=== PATIENT | female | born 1985 | race Caucasian/White ===

== ENCOUNTER → 2017-11-22 | Outpatient (CLI) | payer BC ==
[~2017-11-22] MED LIST: FERR140T3 PO; HYDR-4309 PO; IBUP800T37 PO; PREN-127 PO
[2017-11-22 16:57] LABS: PLATELET COUNT, AUTOMATED 372 K/uL (150-450)
== END ==
LOC: MERGE 15:49 → LAB 15:49
PROVIDERS: ATTEND Student in an Organized Health Care Education/Training Program
DX: Z34.91 Encounter for supervision of normal pregnancy, unspecified, first trimester (principal)
CPT/HCPCS: 36415; 85025; 86592; 86703; 86762; 86787; 86850; 86900; 86901; 87340; 87491; 87591

== ENCOUNTER → 2018-01-01 | Outpatient (CLI) | payer BC ==
[~2018-01-01] MED LIST changes: -HYDR-4309 PO; +HYDR-653 PO
--- NOTE | 2018-01-01 20:56 | RADIOLOGY IMAGING REPORT ---
FACILITY: [facility] [place] PATIENT NAME: Rin Teran : 1985 MR: [id number] V: [id number] EXAM DATE: ORDERING PHYSICIAN: SHEREE SALAZAR TECHNOLOGIST: Location: [facility] [place] Patient: Rin Teran : 1985 Visit/Account:[id number] Date of Sevice: 01/01/2018 EXAMINATION: Transabdominal OB Ultrasound >14 wks with Anatomic Survey 01/01/2018 12:04 PM History: ENCNTR FOR SUPRVSN OF NORMAL , UNSP, UNSP TRIMESTER COMPARISON: None FINDINGS: Intrauterine gestations: one presentation: Variable, primarily head down heart rate: 142 bpm Amniotic fluid index: 14.0 cm Largest amniotic fluid pocket 6.1 cm Placenta: Anterior without previa. Placental cord insertion is normal. Uterus: gravid, otherwise normal Maternal adnexa: 5.3 cm anechoic cystic structure in the right adnexa Cervix: Grossly closed Gestational Parameters: BPD: 4.6 cm 20 weeks 0 days HC: 16.7 cm 19 weeks 3 days AC: 14.5 cm 19 weeks 6 days FL: 3.1 cm 19 weeks 4 days Average ultrasound age (AUA): 19 weeks 5 days Estimated gestational age by LMP: 19 weeks 2 days Estimated weight (EFW): 304 grams +/- 44 grams EFW for LMP percentile: 67 Anatomic Survey: Intracranial structures, nose and lips, 4-chamber heart and outflow tracts, stomach, kidneys, urinary bladder, spine, 3-vessel cord and cord insertion are unremarkable. Two upper and two lower extremiti es visualized. The outflow views particularly the right are not optimal but probably grossly normal. IMPRESSION: 1. Single live intrauterine gestation; estimated ultrasound age 19 weeks 5 days (cyst DOMINIK 05/23/2018) which is within range of error with expected clinical dates. 2. Unremarkable anatomic survey. See above discussion regarding the cardiac outflow tract views . There is a greater than 5 cm simple appearing right adnexal cyst which may be a prominent corpus freddy teum cyst. This could be followed later in gestation and repeat cardiac outflow tract views could be obtained at that time. Report Dictated By: Kei Zavala MD at 01/01/2018 8:40 PM Report E-Signed By: Kei Zavala MD at 01/01/2018 8:52 PM [id number]
== END ==
LOC: US 03:09
PROVIDERS: ATTEND Student in an Organized Health Care Education/Training Program
DX: Z02.9 Encounter for administrative examinations, unspecified (principal)
CPT/HCPCS: 76805

== ENCOUNTER → 2018-02-19 | Outpatient (CLI) | payer BC ==
[2018-02-19 17:00] LABS: PLATELET COUNT, AUTOMATED 400 K/uL (150-450)
== END ==
LOC: LAB 15:38
PROVIDERS: ATTEND Student in an Organized Health Care Education/Training Program
DX: Z34.82 Encounter for supervision of other normal pregnancy, second trimester (principal)
CPT/HCPCS: 36415; 82950; 85025

== ENCOUNTER → 2018-03-12 | Outpatient (CLI) | payer BC | LOC: LAB 08:18 | PROVIDERS: ATTEND Student in an Organized Health Care Education/Training Program | DX: O99.810 Abnormal glucose complicating pregnancy (principal) | CPT/HCPCS: 36415; 82951; 82952 ==

== ENCOUNTER → 2018-04-30 | Outpatient (CLI) | payer BC | LOC: LAB 08:13 | PROVIDERS: ATTEND Student in an Organized Health Care Education/Training Program | DX: Z34.93 Encounter for supervision of normal pregnancy, unspecified, third trimester (principal) | CPT/HCPCS: 87081 ==

== ENCOUNTER 2018-05-20 01:28 | Outpatient (CLI) | payer BC ==
[~2018-05-20] VITALS: Ht 165.1 cm; Wt 117.9 kg
[2018-05-20] MEDS ORDERED: LR(*) 1000 ML BAG 1,000 ML IV SCH (03:29)
[2018-05-20] MEDS ORDERED: TERBUTALINE SULF 1 MG/ML VIAL SUBQ PRN (03:30)
[2018-05-20 04:52] VITALS: BP 127/70; Ht 165.1 cm; Wt 117.9 kg
== END 2018-05-20 06:00 | disposition home or self-care (01) ==
LOC: L&D 01:28 → OB 01:28 → UNDOADMIN 01:28 → OB 01:28 → UNDODISIN 06:00 → L&D 06:00 → EDSTATUS 05-21 07:30
PROVIDERS: ATTEND Obstetrics & Gynecology
DX: O26.893 Other specified pregnancy related conditions, third trimester (principal); Z3A.39 39 weeks gestation of pregnancy
CPT/HCPCS: 59025; 99213; J3105; J7120

== ENCOUNTER 2018-05-25 04:58 | Inpatient (IN) | payer BC ==
[~2018-05-25] VITALS: Ht 165.1 cm; Wt 116.6 kg
[2018-05-25] VITALS (17 sets, daily range): BP systolic 103–147; BP diastolic 65–94; Ht 165.1 cm; Wt 116.6 kg
[2018-05-25] MEDS ORDERED: ceFAZolin(*) 2GM/D5W 50ML 50 ML IVPB ONE (05:02)
[2018-05-25] MEDS ORDERED: FAMOTIDINE 20 MG/50 ML PREMIX IVPB ONE (05:05)
[2018-05-25] MEDS ORDERED: METOCLOPRAMIDE 10 MG/2 ML SDV IVP ONE (05:05)
[2018-05-25] MEDS: LR(*) 1000 ML BAG 1,000 ML IV SCH ×2 (05:47→07:04)
[2018-05-25 06:30] LABS: PLATELET COUNT, AUTOMATED 298 K/uL (150-450)
[2018-05-25] MEDS ORDERED: OXYTOCIN 10 UNIT/ML SDV ONE (06:55)
[2018-05-25] MEDS ORDERED: ONDANSETRON 4 MG/2 ML VIAL ONE (06:55)
[2018-05-25] MEDS ORDERED: fentaNYL CITR 100 MCG/2 ML AMP ONE (06:55)
[2018-05-25] MEDS ORDERED: MORPHINE PF 5 MG/10 ML AMP ONE (06:55)
--- NOTE | 2018-05-25 07:21 | History & Physical ---
History of Present Illness Age of Patient: 32 : 2 Para or TPAL: 0 EDC per LMP: May 26, 2018 Estimated Gestational Age: 39.6 Chief Complaint Breech Presentation History of Present Illness Pt is a 32 y/o @ 39-6/7 wga by LMP c/w a 17 week sonogram. Pt presents to L&D for a scheduled 1LTCS for Breech presentation. Pt was offerred external cephalic version and declined. Pt this morning denies any complaints or concerns. Pt reports no loss of amniotic fluid. Good movement. No vaginal bleeding. History Patient's Blood Type: B Positive Rubella Status: Immune Group B Strep Screen: Negative Obstetrical History: History of Ectopic, Laparoscopic salpingectomy Past Medical History: Non contributory Allergies: Coded Allergies: Sulfa (Sulfonamide Antibiotics) (Verified Allergy, Severe, ANAPHYLAXIS, 01/23/17) latex (Verified Allergy, Mild, LIGHT ITCHING, 01/23/17) gluten (Unverified Allergy, Unknown, 11/24/17) Social History: Denies use of ETOH, Tobacco, or recreational drugs. Family History: Blood clots MATERNAL GRANDPARENT FH: bipolar disorder FATHER FH: diabetes mellitus PATERNAL GRANDPARENT FH: heart disease PATERNAL GRANDPARENT FH: hypertension PATERNAL GRANDPARENT Med Rec Home Meds Reported Medications Vits W-Ca,Fe,Fa(<1MG) ( VITAMINS) 1 Each Tablet, 1 EACH PO DAILY, TAB 01/23/17 Discontinued Reported Medications Ferrous Sulfate (FERROUS SULFATE) 140 Mg Tablet.er, PO QDAY 01/23/17 Review of Systems All Systems Reviewed/Normal: Yes, Except as Noted Constitutional: No Fever, No Weight Loss, No Weight Gain, No Chills, No Night Sweats, No Other Neurological: No Syncope, No Confusion, No Weakness, No Dizziness, No Slurred Speech, No Other Eyes: No Vision Change, No Loss of Vision, No Photophobia, No Other ENT: No Hearing Loss, No Sinus Congestion, No Sore Throat, No Ear Ache, No Tinnitus, No Other Cardiovascular: No Chest Pain, No Palpitations, No Orthostatic Hypotension, No Other Respiratory: No Shortness of Breath, No Cough, No Wheezing, No Other Gastrointestinal: No Nausea, No Vomiting, No Diarrhea, No Dysphagia, No Constipation, No Early Satiety, No Hematemesis, No Hematochezia, No Melena, No Abdominal Pain, No Other Genitourinary: No Dysuria, No Hematuria, No Urinary Incontinence, No Other Musculoskeletal: No Pain, No Sprain, No Strain, No Impaired Mobility, No Other Psychiatric: No Depression, No Anxiety, No Other Exam General Exam Vital Signs Vital Signs Date Time Temp Pulse Resp B/P (MAP) Pulse Ox O2 Delivery O2 Flow Rate FiO2 05/25/18 06:42 98.2 74 16 147/93 (111) 96 Room Air General Apperance: Alert/Awake/No Acute Distress Neuro: No Gross deficits Eyes: Normal Extraocular Movement & Vison ENT: Normal Cardiovascular: Regular Rate and Rhythm Abdomen: Soft, Non-Tender, Non-Distended, Gravid - Non-Tender Musculoskeletal: No Weakness/Pain Psychological: Alert & Oriented X3, Appropriate Mood & Affect Presentation: Chris Breech Fetus Heart Tones: 130 Heart Tone Variabilty: Moderate FHT Accelerations: 15X15 FHT Decelerations: None FHT Category: I Medical Decision Making Data Points Result Diagram: 05/25/18 0613 Pre-Admit Course Medical Record Review: Yes VTE Prophylasis: Adult Deep Vein Thrombosis/Pulmonary: No Assessment and Plan ORACLE DATABASE CONSULTANT Assessment: Stable Problems: (1) Breech presentation Status: Acute Assessment & Plan: Pt declined External Cephalic Version and desires to proceed with scheduled LTCS. Pt was counseled on RBA. Desires to proceed. Consents signed. (2) 39 weeks gestation of Problem Qualifiers (1) Breech presentation: Fetus number: single or unspecified fetus Qualified Codes: O32.1XX0 - Maternal care for breech presentation, not applicable or unspecified SHEREE SALAZAR DO May 25, 2018 07:21
[2018-05-25] MEDS ORDERED: ePHEDrine 25 MG/5 ML DISP.SYR IVP ONE (07:36)
[2018-05-25] MEDS ORDERED: METHYLERGONOVINE MAL 0.2MG/ML ONE (07:50)
[2018-05-25] MEDS ORDERED: KETOROLAC 30 MG/ML VIAL ONE (08:17)
[2018-05-25] MEDS ORDERED: NALBUPHINE HCL 10 MG/ML AMP IVP PRN (09:05)
--- NOTE | 2018-05-25 09:05 | Post Operative Note ---
Operative Note - PANTOGRAPH SETTER Operative Day Date: May 25, 2018 Time: 08:51 Physicians Surgeon: Sheree Nunez Yarn Salvager: Brittany Kevin CNM Anesthesia: Spinal Diagnosis Pre-Op Diagnosis: 32 y/o G2P@ 39-6/7 wga Breech presentation, Declines ECV Post-Op Diagnosis: Same Delivered Uterine Malformation Procedure Findings: Uterus appears malformed. Left cornua is asymettric to right. Left fallopian tube surgically absent. Right fallopian tube normal. Left Ovary significantly lower then right ovary on uterus. BabY: Live born female infant at 0753 with apgars of 9/9 weight 3798 gm 8#6 oz. Procedure(s): 1LTCS Specimen Removed:(Maybe N/A): 0 Complications: 0 known Fluids Fluids: 1 liter LR u/o 50cc Estimated Blood Loss: 800 Dictated Date OP Note Dictated: May 25, 2018 Time OP Note Dictated: 09:05 SHEREE NUNEZ DO May 25, 2018 09:05
[2018-05-25] MEDS ORDERED: OXYTOCIN 30 UNIT/D5LR 500 ML 500 ML IV PRN (09:06)
--- NOTE | 2018-05-25 09:08 | Anesthesia OB Pre-Anes Eval ---
History of Present Illness Anesthesia Start Date: May 25, 2018 Anesthesia Start Time: 07:20 OB Anesthesia Diagnosis: primary c/section Current Complication: obesity EDC: May 26, 2018 : 2 Para: 0 Vital Signs: Vital Signs Date Time Temp Pulse Resp B/P (MAP) Pulse Ox O2 Delivery O2 Flow Rate FiO2 05/25/18 06:42 98.2 74 16 147/93 (111) 96 Room Air Result Diagram: 05/25/18 0613 Height (Inches): 65.00 Weight (Pounds): 257 Past Medical History Medical History: obesity, asthma, other (insulin resistance) Surgical History: noncontributory Previous Anesthesia: general Attended Childbirth Classes?: No Hx Anesthesia Reactions: No Hx Family Anesthesia Reaction: No Home Meds Reported Medications Vits W-Ca,Fe,Fa(<1MG) ( VITAMINS) 1 Each Tablet, 1 EACH PO DAILY, TAB 01/23/17 Discontinued Reported Medications Ferrous Sulfate (FERROUS SULFATE) 140 Mg Tablet.er, PO QDAY 01/23/17 Allergies: Coded Allergies: Sulfa (Sulfonamide Antibiotics) (Verified Allergy, Severe, ANAPHYLAXIS, 01/23/17) latex (Verified Allergy, Mild, LIGHT ITCHING, 01/23/17) gluten (Unverified Allergy, Unknown, 11/24/17) Anesthesia OB ROS Neurological: No migraines/headaches, No seizures, No neuropathy, No other ENT: Denies Tooth caps, Denies Loose teeth, Denies Chipped teeth, Denies Dentures, Denies Bridges, Denies Retainers, Denies Veneers, Denies Implants, Denies Tongue ring, Denies Other Pulmonary: asthma (well controlled) Airway Class: ll Cardiovascular ROS: No edema, No arrhythmia, No other GI ROS: NPO ROS: No Herpes, No STD(s), No Liver Disease, No Renal Disease, No Other Endocrine ROS: No diabetes, No gestational diabetes, No thyroid disorder, No other Musculoskeletal ROS: No low back pain, No low back injury, No scoliosis, No other ASA Classification: 2 Assessment and Plan Anesthesia Plan: SAB Anesthesia Stop Day: May 25, 2018 Anesthesia Stop Time: 08:49 RADHA ELAM CRNA May 25, 2018 09:08
[2018-05-25] MEDS ORDERED: ZOLPIDEM TARTRATE 5 MG TAB PO PRN (09:10)
[2018-05-25] MEDS ORDERED: PROMETHAZINE 25 MG/ML 1 ML AMP IVP PRN (09:10)
[2018-05-25] MEDS ORDERED: LANOLIN OINT 7 GM TUBE TP PRN (09:10)
[2018-05-25] MEDS ORDERED: ACETAMINOPHEN 325 MG TAB PO PRN (09:10)
[2018-05-25] MEDS ORDERED: ONDANSETRON 4 MG/2 ML VIAL IV PRN (09:10)
--- NOTE | 2018-05-25 09:10 | Procedure Note ---
Anesthetic Placement Note Anesthesia Plan: SAB Permit for Anesthesia Signed: Yes Anesthesia Technique: Patient Sitting Anesthesia Prep: Chlorhexidine Interspace: L 4-5 Local Anesthetic: 1% Lidocaine, 25 Gauge Needle Amount Local - cc's: 5 Anesthesia Needle: 25g Pencan w/Introducer Anesthesia Attempts: 1 (2 needle redirections) Cerebral Spinal Fluid: Yes, Clear Anesthesia Tray: Lot Number ([id number]), Expiration Date (02/09/2019), Reference Number ([id number]) Anesthesia Medications: Intrathecal Dose: mcg Fentanyl (10 mcg), mg Marcaine MPF, mg Astromorph (0.15mg), mg Spinal Bupivicaine (12.75mg), Time (0730) Complications: None RADHA ELAM CRNA May 25, 2018 09:10
--- NOTE | 2018-05-25 09:26 | NUR ---
0846- PT. INTO PACU VIA BED. SAFETY ENSURED. SBAR FROM [place]. VSS. BABE PLACED SKIN TO SKIN ON MOTHERS CHEST. CATH SECURED. 0851- PT. REQUESTING TO SIT UP IN BED. BED RAISED. BP CHECKED STABLE. NC 2L PLACED ON PT. DUE TO DESAT OF OXYGEN. 0853- HOB RAISED BP RECHECKED REMAINS STABLE. VSS. OXYGEN IMPROVED. 0900- VSS. PT. REPORTS SOME BACK/RLQ PAIN. REASSURED. POSITION CHANGED. KNEES RAISED. 0915- VSS. NO CONCERNS. ICE PACK PLACED ON RLQ.
--- NOTE | 2018-05-25 09:28 | NUR ---
0900- PT.GIVEN ICE CHIPS PER REQUEST. TOLERATING. DENIES NAUSEA.
--- NOTE | 2018-05-25 09:50 | OPERATIVE REPORT 1 ---
EVENT DATE: May 25, 2018 SURGEON: Eliecer Nunez DO ANESTHESIOLOGIST: ANESTHESIA: Spinal by Orion Chaparro CRNA FINISHER TAILOR APPRENTICE: Maricel Bee; Chikis Kevin CNM PREOPERATIVE DIAGNOSES 1. 32-year-old 2, para 0 at 39 and 6/7 weeks gestation. 2. Breech presentation, declines external cephalic version. POSTOPERATIVE DIAGNOSES 1. 32-year-old 2, para 0 at 39 and 6/7 weeks gestation. 2. Breech presentation, declines external cephalic version. 3. Delivered. 4. Uterine malformation. PROCEDURE Primary low transverse caesarean section. FINDINGS Liveborn female infant at 0753 with Apgars of 9 and 9, weighing 3,798 grams, 8 pounds 6 ounces, three-vessel cord, intact placenta. Baby did have a nuchal cord x3. Uterus appeared malformed with the left cornua being asymmetric to the right. Left cornua was significantly lower in relation to the right cornua. The right fallopian tube appeared normal. Left fallopian tube was surgically absent. The left ovary was drastically lower on the uterus as compared to the right ovary. No uterine septum palpated on manual extraction of placenta. ESTIMATED BLOOD LOSS 800 cc. IV FLUIDS 1L lactated ringers. . URINE OUTPUT 50 cc. COMPLICATIONS None known. CONDITION Stable x2. Mother and to the recovery room. COUNTS Correct for all needles, laps, sponges and instruments. INDICATIONS AND CONSENT Patient is a 32-year old 2, para 0 at 39 and 6/7 weeks' gestation by LMP, consistent with 17 week sonogram, who presented to Labor and Delivery for a scheduled primary section secondary to breech presentation. Patient was offered external version in the clinic but declined and decided to proceed with a primary caesarean section. Patient was counseled accordingly and signed appropriate consents and was taken to the operating room. DESCRIPTION OF PROCEDURE Patient was taken to the operating room, where she had a spinal anesthesia achieved. Once anesthesia was achieved, she then was placed in the dorsal supine position. She was prepped and draped in the usual sterile manner. Skin testing was performed and found to be adequate to the level of the umbilicus. A Pfannenstiel skin incision was then created with a scalpel all the way down to the layer of the fascia. Once the fascia was visualized, it was notched bilaterally. The fascial incision was extended laterally in a curvilinear manner with curved De scissors. Fascia was dissected off the rectus muscles both superiorly and inferiorly and the rectus muscles were at midline. The peritoneum was grasped with hemostats and entered sharply with Metzenbaum scissors. General stretching was performed. Bladder blade was placed. Bladder flap was created with Metzenbaum scissors and Serbian pickups. Bladder blade replaced. A low transverse incision was created on the uterus with a scalpel. This was carried all the way to the layer of the amnion. Once the amnion was visualized, the surgeon's finger was placed inside the hysterotomy. The hysterotomy was extended in a curvilinear manner with the surgeon's fingers. At this point, the surgeon's hand was placed inside the hysterotomy. The presenting part were both feet. At this point, both feet were grasped and brought through the hysterotomy. At this point, the infant was spine down, belly up. Surgeon's hands were placed over the anterior superior iliac crest of the baby as well as on the sacrum. The baby is rotated to spine up and gently rotated to the level of the scapula, rotated to the left. The 's arm was flexed and brought through the hysterotomy. The was rotated to the right. The right arm was flexed and brought out of the hysterotomy. The surgeon's hand was placed on the maxilla of the . The haynes/head was flexed with assistant laboratory director helping. Pressure was applied just behind the vertex and the infant's head was brought through the hysterotomy without any difficulty. It was noted there were three nuchals. These were reduced after the delivery of the infant. The cord was clamped after approximately one minute and cut. The infant was shown to mom and dad and was handed to awaiting nursing staff to be taken to the warmer and to be vigorously cleaned and dried. Cord blood gas was obtained. The placenta delivered with manual extraction. The uterus was exteriorized. It was wrapped with wet laparotomy sponge and cleaned of all clot and debris. The hysterotomy was closed with 0 Monocryl in a running manner. Hemostasis was achieved with an additional 0 Monocryl suture for imbrication. Hysterotomy was inspected and found to be hemostatic. Uterus was placed back inside the abdomen. The right and left gutter were cleaned of all clot and debris. Hysterotomy was once again inspected and found to be hemostatic. At this point, the peritoneum was closed with 3-0 Monocryl in a running manner. The muscle layer was inspected and found to be hemostatic. The fascia was then closed with loop PDS in a running manner. The subcutaneous tissue was then irrigated. The subcutaneous tissue was deemed greater than 2 cm so it was closed with 3-0 Monocryl in a running manner. The skin was closed with 4-0 Vicryl in a subcuticular manner. Skin incision was then cleaned and Dermabond was placed over the incision. At this point, the patient was cleaned. She was then transferred to a hospital bed and transferred to the recovery room in stable condition. DENA
--- NOTE | 2018-05-25 13:56 | OB/GYN Progress Note ---
OB Subjective Progress Notes Subjective Ms. Teran reports that she overall feels well. No nausea or vomiting, tolerated lunch. Pain well-controlled. No CP or SOB. Has not yet been up to ambulate. Nursing her female infant. GI: NEG Nausea, NEG Vomiting, NEG Flatus, NEG Bowel Movement : Vaginal Bleeding, Moderate Pain: Mild, Tolerating PO Pain Meds Neurological: No Headache, No Other Eyes: No Visual Disturbances OB Objective Physical Exam Vital Signs Date Time Temp Pulse Resp B/P (MAP) Pulse Ox O2 Delivery O2 Flow Rate FiO2 05/25/18 11:30 98.6 80 18 128/78 (95) 91 Room Air 05/25/18 09:15 2.0 General Appearance: Alert/Awake/No Acute Distress Neurological: No Gross deficits Eyes: Normal Extraocular Movement & Vison Cardiovascular: Regular Rate and Rhythm Respiratory: Clear to Auscultation Abdomen: Soft, Non-Tender, Non-Distended, Fundus Firm, Bowel Sounds Present Incision: Clean, Dry, Intact Extremities: No Cyanosis,Clubbing or Edema Integumentary: Skin Intact without Lesions or Rash Psychological: Alert & Oriented X3, Appropriate Mood & Affect Result Diagram: 05/25/18 0613 Assessment and Plan Post Day: 0 Post Op Day: 0 Hospital Day: 1 SOLAR PHOTOVOLTAIC DESIGNER Assessment: Stable SOLAR PHOTOVOLTAIC DESIGNER Plan: Routine Post- Care, Routine Post-Op Care Problems: (1) care following delivery Status: Acute Assessment & Plan: 32yo POD 0 s/p primary delivery. Overall doing well. . -routine post-op care, up to chair, ambulate, shower and trial of void in am -routine post- care, support LEOPOLDO LONG MD May 25, 2018 13:56
[2018-05-25] MEDS: SIMETHICONE 80 MG CHEW CHEW PRN (14:32)
[2018-05-25] MEDS: KETOROLAC 30 MG/ML VIAL IVP SCH ×2 (14:32→20:30)
[2018-05-25] MEDS: DLR(*) 1000 ML BAG 1,000 ML IV PRN ×2 (14:32→21:32)
[2018-05-25] MEDS: FAMOTIDINE 20 MG TAB PO SCH (20:48)
[2018-05-25] MEDS: DOCUSATE CALCIUM 240 MG CAP PO SCH (20:48)
[2018-05-26 03:10] VITALS: BP 113/88
[2018-05-26] MEDS: KETOROLAC 30 MG/ML VIAL IVP SCH (04:00)
[2018-05-26] MEDS: DLR(*) 1000 ML BAG 1,000 ML IV PRN (04:15)
[2018-05-26 06:53] LABS: PLATELET COUNT, AUTOMATED 230 K/uL (150-450)
[2018-05-26 08:00] VITALS: BP 118/77
[2018-05-26] MEDS: SIMETHICONE 80 MG CHEW CHEW PRN (08:28)
[2018-05-26] MEDS: FAMOTIDINE 20 MG TAB PO SCH ×2 (08:28→21:00)
[2018-05-26] MEDS: DOCUSATE CALCIUM 240 MG CAP PO SCH ×2 (08:28→21:18)
[2018-05-26] MEDS: IBUPROFEN 800 MG TAB PO SCH ×3 (08:29→23:26)
--- NOTE | 2018-05-26 08:59 | Anesthesia Post Eval Note ---
Anesthesia Post Eval Note Vital Signs Date Time Temp Pulse Resp B/P (MAP) Pulse Ox O2 Delivery O2 Flow Rate FiO2 05/26/18 08:00 98.9 80 18 118/77 (91) 94 Room Air 05/25/18 14:40 2.0 Pt able to participate in Eval: Yes Cardiovascular Status: Satisfactory Respiratory Status: Satisfactory Pain Managment: Satisfactory PO Nausea/Vomiting: Satisfactory Temperature Management: Satisfactory Mental Status: Satisfactory, Alert, Oriented X3 Post-Op Hydration Status: Satisfactory, Tolerating PO Well, Voiding w/o Difficulty Anesthesia Type: SAB Anesthesia Tolerance: No complications noted. RADHA ELAM CRNA May 26, 2018 08:59
--- NOTE | 2018-05-26 09:29 | OB/GYN Progress Note ---
OB Subjective Progress Notes Subjective Ms. Teran reports that she feels overall well this am. She states that is going well. She is tolerating a regular diet. She has not yet passed flatus. She denies CP and shortness of breath. Her pain is well- controlled. Her mood is good and she denies signs/symptoms of post- depression. Her sampson catheter has been removed and she is up to a chair. GI: NEG Nausea, NEG Vomiting, NEG Flatus, NEG Bowel Movement : Vaginal Bleeding, Scant, Other (sampson catheter removed this am, not yet voided) Pain: Mild, Tolerating PO Pain Meds Neurological: No Headache, No Other Eyes: No Visual Disturbances OB Objective Physical Exam Vital Signs Date Time Temp Pulse Resp B/P (MAP) Pulse Ox O2 Delivery O2 Flow Rate FiO2 05/26/18 08:00 98.9 80 18 118/77 (91) 94 Room Air 05/25/18 14:40 2.0 Intake and Output 05/26/18 06:59 Intake Total 2950 ml Output Total 2950 ml Balance 0 ml Intake Oral 0 ml IV Total 2950 ml Blood Product 0 ml Output Urine Total 1350 ml Estimated Blood Loss 1600 ml # Voids 1 General Appearance: Alert/Awake/No Acute Distress Neurological: No Gross deficits Eyes: Normal Extraocular Movement & Vison Cardiovascular: Regular Rate and Rhythm Respiratory: Clear to Auscultation Abdomen: Soft, Non-Tender, Non-Distended, Fundus Firm, Non-Tender, Bowel Sounds Present Incision: Clean, Dry, Intact Extremities: No Cyanosis,Clubbing or Edema, Warm, Perfused, Edema (1+ bilateral) Integumentary: Skin Intact without Lesions or Rash Psychological: Alert & Oriented X3, Appropriate Mood & Affect Result Diagram: 05/26/18 0638 Assessment and Plan Post Day: 1 Post Op Day: 1 Hospital Day: 2 CERTIFIED PEST CONTROL TECHNICIAN Assessment: Stable CERTIFIED PEST CONTROL TECHNICIAN Plan: Routine Post- Care, Routine Post-Op Care, Discharge Home Tomorrow Problems: (1) care following delivery Status: Acute Assessment & Plan: 32yo POD 1 s/p primary delivery. Overall doing well. . Tolerating regular diet. Pain well-controlled. -routine post-op care, up to chair, ambulate, shower and trial of void today -routine post- care, support -anticipate discharge home in am tomorrow LEOPOLDO LONG MD May 26, 2018 09:29
[2018-05-26] MEDS ORDERED: IBUP800T37 PO (09:32)
[2018-05-26] MEDS ORDERED: PER PO (09:32)
[2018-05-26] MEDS ORDERED: DOCU240C67 PO (09:32)
[2018-05-26 11:45] VITALS: BP 138/89
[2018-05-26 15:34] VITALS: BP 123/81
[2018-05-26 19:10] VITALS: BP 136/77
[2018-05-27 03:30] VITALS: BP 132/74
[2018-05-27 07:18] VITALS: BP 131/84
[2018-05-27] MEDS: FAMOTIDINE 20 MG TAB PO SCH (08:26)
[2018-05-27] MEDS: IBUPROFEN 800 MG TAB PO SCH (08:26)
[2018-05-27] MEDS: DOCUSATE CALCIUM 240 MG CAP PO SCH (08:26)
[2018-05-27] MEDS ORDERED: MEASLES,MUMP,RUBELLA VAC 0.5ML SUBQ ONE (09:10)
[2018-05-27] MEDS ORDERED: DIPHTH/TETANUS/ACEL. PERTUSSIS IM ONLY ONE (09:10)
[2018-05-27] MEDS ORDERED: INFLUENZA VIRUS VAC 0.5ML SYR IM ONLY ONE (09:10)
--- NOTE | 2018-05-27 09:36 | OB/GYN Progress Note ---
OB Subjective Progress Notes Subjective Ms. Teran reports that she is overall feeling well and would like to go home today. She continues to breastfeed, and that is going well. She is using nipple cream on her nipples. She is tolerating a regular diet, was able to pass flatus and have a bowel movement without difficulty. No nausea or emesis. Pain controlled with PO pain meds. Ambulating and voiding urine without difficulty. She is fatigued but denies ss/sx of post- depression. GI: POS Flatus, POS Bowel Movement; NEG Nausea, NEG Vomiting : Voiding Well, Vaginal Bleeding, Scant Pain: Mild, Tolerating PO Pain Meds Neurological: No Headache, No Other Eyes: No Visual Disturbances OB Objective Physical Exam Vital Signs Date Time Temp Pulse Resp B/P (MAP) Pulse Ox O2 Delivery O2 Flow Rate FiO2 05/27/18 07:30 Room Air 05/27/18 07:18 97.9 91 18 131/84 (100) 05/26/18 15:34 92 05/25/18 14:40 2.0 Intake and Output 05/27/18 06:59 Intake Total 2120 ml Output Total 1200 ml Balance 920 ml Intake Oral 2120 ml Output Urine Total 1200 ml # Voids 7 General Appearance: Alert/Awake/No Acute Distress Neurological: No Gross deficits Eyes: Normal Extraocular Movement & Vison Cardiovascular: Regular Rate and Rhythm Respiratory: No Respiratory Distress, Clear to Auscultation Abdomen: Soft, Non-Tender, Non-Distended, Fundus Firm, Non-Tender, Bowel Sounds Present Incision: Clean, Dry, Intact Extremities: No Cyanosis,Clubbing or Edema, Warm, Perfused, Edema (1+ bilateral) Integumentary: Skin Intact without Lesions or Rash Psychological: Alert & Oriented X3, Appropriate Mood & Affect Result Diagram: 05/26/18 0638 Assessment and Plan Post Day: 2 Post Op Day: 2 Hospital Day: 3 NON LINEAR EDITOR Assessment: Stable NON LINEAR EDITOR Plan: Routine Post- Care, Routine Post-Op Care, Discharge Home Today Problems: (1) care following delivery Status: Acute Assessment & Plan: 32yo POD 2 s/p primary delivery. Overall doing well. . Tolerating regular diet. Pain well-controlled. No evidence of post- depression. -meeting all discharge criteria -discharge home today -reviewed discharge prescriptions -long discussion about , warning signs, community supports -long discussion regarding post- vaginal bleeding, warning signs -long discussion regarding post- depression, warning signs, community supports -discussed routine wound care, post-op check in two weeks -discussed pelvic rest x 6 weeks, libido changes post- related to - visit in 6 weeks LEOPOLDO LONG MD May 27, 2018 09:36
--- NOTE | 2018-05-27 09:38 | OB/GYN Discharge Summary ---
Discharge Summary Reason for Hosp/Final Diag: (1) care following delivery Status: Acute Hospital Course & Plan: 32yo POD 2 s/p primary delivery. Overall doing well. . Tolerating regular diet. Pain well- controlled. No evidence of post- depression. -meeting all discharge criteria -discharge home today -reviewed discharge prescriptions -long discussion about , warning signs, community supports -long discussion regarding post- vaginal bleeding, warning signs -long discussion regarding post- depression, warning signs, community [place] pports -discussed routine wound care, post-op check in two weeks -discussed pelvic rest x 6 weeks, libido changes post- related to - visit in 6 weeks [place] Vital Signs Vital Signs Date Time Temp Pulse Resp B/P (MAP) Pulse Ox O2 Delivery O2 Flow Rate FiO2 05/27/18 07:30 Room Air 05/27/18 07:18 97.9 91 18 131/84 (100) 05/26/18 15:34 92 05/25/18 14:40 2.0 Weight (Pounds): 257 Result Diagram: 05/26/18 0638 Condition: Improved Discharge: Home, Self Group Home Meds Active Scripts Oxycodone/Acetaminophen (OXYCODONE/ACETAMINOPHEN 5MG/325 MG) 5 Mg/325 Mg Tab, 1- 2 TAB PO Q4H PRN for PAIN for 14 Days, #30 TAB Prov:LEOPOLDO LONG MD 05/26/18 Ibuprofen (IBUPROFEN) 800 Mg Tablet, 800 MG PO Q8H@0030,0830,1630 PRN for PAIN for 30 Days, #90 TAB 1 Refill Prov:LEOPOLDO LONG MD 05/26/18 Docusate Calcium (DOCUSATE CALCIUM) 240 Mg Capsule, 240 MG PO BID for 30 Days, #60 CAPSULE 1 Refill Prov:LEOPOLDO LONG MD 05/26/18 Reported Medications Vits W-Ca,Fe,Fa(<1MG) ( VITAMINS) 1 Each Tablet, 1 EACH PO DAILY, TAB 01/23/17 Discontinued Reported Medications Ferrous Sulfate (FERROUS SULFATE) 140 Mg Tablet.er, PO QDAY 01/23/17 Follow up with: [facility] [phone] Follow up in: 6 wks PP or PO, 2 wks PO Discharge Diet: As Tolerates Discharge Activity: Pelvic Rest LEOPOLDO LONG MD May 27, 2018 09:38
== END 2018-05-27 12:00 | disposition home or self-care (01) | DRG 788 ==
LOC: OB 04:58
PROVIDERS: ADMIT Student in an Organized Health Care Education/Training Program; ATTEND Student in an Organized Health Care Education/Training Program
PROC: 10D00Z1 Extraction of Products of Conception, Low, Open Approach (ICD-10-PCS; principal; 2018-05-25 07:30)
DX: O32.1XX0 Maternal care for breech presentation, not applicable or unspecified (principal); O69.1XX0 Labor and delivery complicated by cord around neck, with compression, not applicable or unspecified; O34.03 Maternal care for unspecified congenital malformation of uterus, third trimester; O65.8 Obstructed labor due to other maternal pelvic abnormalities; O99.214 Obesity complicating childbirth; E66.9 Obesity, unspecified; Z3A.39 39 weeks gestation of pregnancy; Z37.0 Single live birth; Z88.2 Allergy status to sulfonamides; Z91.040 Latex allergy status; Q51.818 Other congenital malformations of uterus; Z90.79 Acquired absence of other genital organ(s)
CPT/HCPCS: 36415; 59025; 85025; 86850; 86900; 86901; J0690; J1885; J2210; J2270; J2405; J2590; J2765; J3010; J7120

== ENCOUNTER → 2018-07-09 | Outpatient (CLI) | payer BC ==
[2018-05-25 06:42] VITALS: BMI 42.8
[~2018-07-09] MED LIST changes: +CEPH500T7 PO; +DOCU240C67 PO; +PER PO
== END ==
LOC: LAB 11:08
PROVIDERS: ATTEND Student in an Organized Health Care Education/Training Program
DX: S31.109A Unspecified open wound of abdominal wall, unspecified quadrant without penetration into peritoneal cavity, initial encounter (principal); B96.20 Unspecified Escherichia coli [E. coli] as the cause of diseases classified elsewhere; B96.89 Other specified bacterial agents as the cause of diseases classified elsewhere
CPT/HCPCS: 87070; 87073; 87077; 87186